=== PATIENT | female | born 1990 | race African-American/Black ===

== ENCOUNTER 2018-06-10 08:56 | Emergency (ER) | payer SELFPAY ==
[~2018-06-10] VITALS: Ht 165.1 cm; Wt 122.0 kg
--- NOTE | 2018-06-10 09:28 | PHYS DOC ---
Adult General Chief Complaint Chief Complaint: LOWER EXT PAIN HPI HPI Patient is a 28 year old -[place] female who presents to the emergency department with complaints of left leg pain since yesterday with no known injury. Patient states she has pain from her mid thigh that runs down to her ankle on her left leg. She denies any recent long car rides, or air travel. She denies any history of blood clots. Patient states she is not allergic to any medications and she denies any medical or surgical history. Currently she rates her pain as a 10 out of 10 on the pain scale and describes the pain as sharp cramping. She states that the pain increases when she tries to move her leg. Review of Systems Review of Systems Constitutional: Denies fever or chills [] Respiratory: Denies cough or shortness of breath [] Cardiovascular: Denies chest pain Musculoskeletal: Denies back pain or joint pain, reports pain in left leg from calf to ankle that increases with movement. She denies any swelling or injury Integument: Denies rash or skin lesions [] Neurologic: Denies headache, focal weakness or sensory changes [] All other systems were reviewed and found to be within normal limits, except as documented in this note. Current Medications Current Medications Current Medications Medications (Trade) Dose Ordered Sig/Allegra Start Time Stop Time Status Last Admin Dose Admin Acetaminophen/ Hydrocodone Bitart (Lortab 5/325) 1 tab 1X ONCE 06/10/18 09:45 06/10/18 09:46 DC 06/10/18 09:29 1 TAB Ondansetron HCl (Zofran Odt) 4 mg 1X ONCE 06/10/18 11:00 06/10/18 11:01 DC 06/10/18 10:37 4 MG Orphenadrine Citrate (Norflex) 60 mg 1X ONCE 06/10/18 11:15 06/10/18 11:16 DC 06/10/18 10:58 60 MG Allergies Allergies Allergies Coded Allergies Type Severity Reaction Last Updated Verified No Known Drug Allergies 06/10/18 No Physical Exam Physical Exam Constitutional: Well developed, well nourished, no acute distress, non-toxic appearance, obese. [] HENT: Normocephalic, atraumatic, bilateral external ears normal, nose normal. [] Eyes: PERRLA, , conjunctiva normal, no discharge. [] Cardiovascular:Heart rate regular rhythm, no murmur [] Lungs & Thorax: Bilateral breath sounds clear to auscultation [] Skin: Warm, dry, no erythema, no rash. [] Extremities: no cyanosis, no clubbing, ROM intact, no edema; posterior left leg tender to palpation, pedal and posterior tibial pulses are palpable week of lower left extremity, pedal and posterior tibial pulses of the left lower extremity are Doppler strong [] Neurologic: Alert and oriented X 3, normal motor function, normal sensory function, no focal deficits noted. [] Psychologic: Affect normal, judgement normal, mood normal. [] Current Patient Data Vital Signs Vital Signs Date Time Temp Pulse Resp B/P (MAP) Pulse Ox O2 Delivery O2 Flow Rate FiO2 06/10/18 11:00 14 99 Room Air 06/10/18 09:00 98.4 70 155/81 (105) 98.4 EKG EKG [] Radiology/Procedures Radiology/Procedures IMAGING REPORT Signed PATIENT: MARLYN STERLING ACCOUNT: [id number] : 1990 LOCATION: ER AGE: 28 SEX: F EXAM STATUS: REG ER ORD. PHYSICIAN: TIARA OZUNA APRN REASON: atraumatic left leg pain from thigh to ankle PROCEDURE: VENOUS LOWER EXTREMITY LEFT Left lower extremity venous doppler ultrasound History: LEFT LEG PAIN Comparison: None Findings: Multiple grayscale, color, and duplex spectral analysis sonographic images were acquired of the left lower extremity veins to evaluate for the presence of DVT. There is normal phasicity. Normal compression, color-flow, and augmentation is demonstrated from the left common femoral to the popliteal veins. There is normal color flow of the proximal greater saphenous and profunda femoris veins. There is normal color flow of segments of the calf veins. Impression: 1. There is no evidence of deep venous thrombosis from the left common femoral to popliteal veins. Electronically signed by: Elizabet Perera MD (06/10/2018 10:15 AM) [id number] DICTATED and SIGNED BY: ELIZABET PERERA MD DATE: 06/10/18 1015 [] Course & Med Decision Making Course & Med Decision Making Pertinent Labs and Imaging studies reviewed. (See chart for details) Patient is a 28-year-old female who presents to the emergency room with complaints of left leg pain without any injury for the last 2 days. Signs are stable. Ultrasound was negative for any DVT or acute finding. Patient was given hydrocodone one 5/325 mg tablet for relief of pain. She then vomited times one and was given 4 mg of Zofran ODT. Finally patient was given 60 mg of IM orphenadrine for relief of her discomfort. Advised patient of negative ultrasound, will treat this as a muscle strain, patient agrees with plan of care. Patient verbalized understanding of home care, prescriptions, follow-up, return to ED instructions without any further questions or concerns. Prescriptions for naproxen and Flexeril written. [] Dragon Disclaimer Dragon Disclaimer This electronic medical record was generated, in whole or in part, using a voice recognition dictation system. Departure Departure Impression: Primary Impression: Muscle strain of left lower extremity Disposition: HOME, SELF-CARE Condition: STABLE Patient Instructions: Muscle Strain, [id number] Additional Instructions: Fill the prescriptions and use as directed. Recommend rest and elevation of your affected extremity. May apply heat or ice to sore areas for relief of discomfort. Follow up with your primary care doctor in 1-2 days, return to the ER if your symptoms worsen. Scripts Naproxen (NAPROXEN) 500 Mg Tablet 500 MG PO BID for 10 Days, #20 TAB 0 Refills Prov: TIARA OZUNA APRN 06/10/18 Cyclobenzaprine Hcl (CYCLOBENZAPRINE HCL) 10 Mg Tablet 10 MG PO TID PRN for PAIN for 7 Days, #21 TAB 0 Refills Prov: TIARA OZUNA APRN 06/10/18 Problem Qualifiers Primary Impression: Muscle strain of left lower extremity Encounter type: initial encounter Qualified Codes: S86.912A - Strain of unspecified muscle(s) and tendon(s) at lower leg level, left leg, initial encounter TIARA OZUNA APRN Jun 10, 2018 09:28
[2018-06-10] MEDS ORDERED: HYDROcodone/APAP 5/325MG 1 TAB TABLET PO ONE (09:45)
--- NOTE | 2018-06-10 10:18 | RAD ---
Left lower extremity venous doppler ultrasound History: LEFT LEG PAIN Comparison: None Findings: Multiple grayscale, color, and duplex spectral analysis sonographic images were acquired of the left lower extremity veins to evaluate for the presence of DVT. There is normal phasicity. Normal compression, color-flow, and augmentation is demonstrated from the left common femoral to the popliteal veins. There is normal color flow of the proximal greater saphenous and profunda femoris veins. There is normal color flow of segments of the calf veins. Impression: 1. There is no evidence of deep venous thrombosis from the left common femoral to popliteal veins. Electronically signed by: Geoff Muñoz MD (06/10/2018 10:15 AM) [id number]
[2018-06-10 11:00] VITALS: BP 148/94
[2018-06-10] MEDS ORDERED: ONDANSETRON ODT 4 MG TAB.RAPDIS. PO ONE (11:00)
[2018-06-10] MEDS ORDERED: ORPHENADRINE CITRATE 60 MG/2 ML VIAL. IM ONE (11:15)
[2018-06-10] MEDS ORDERED: NAPR-514 PO (11:25)
[2018-06-10] MEDS ORDERED: CYCL10TA2 PO (11:25)
== END 2018-06-10 11:37 | disposition home or self-care (01) ==
LOC: ER 08:56
DX: S86.912A Strain of unspecified muscle(s) and tendon(s) at lower leg level, left leg, initial encounter (principal); R11.10 Vomiting, unspecified; X58.XXXA Exposure to other specified factors, initial encounter; Y93.89 Activity, other specified; Y92.9 Unspecified place or not applicable; Y99.8 Other external cause status
CPT/HCPCS: 93971; 96372; 99284; J2360; Q0162